=== PATIENT | male | born 1990 | race Caucasian/White ===

== ENCOUNTER 2018-04-22 11:06 | Observation (INO) | payer BC ==
[2018-04-22] MEDS ORDERED: HYDROmorphone 1 MG/ML Syringe IVPUSH ONE (11:16)
[2018-04-22] MEDS ORDERED: Ketorolac 30 MG/ML SDV IVPUSH ONE (11:21)
[2018-04-22] MEDS ORDERED: Diphtheria,Pertussis(Acell),Tetanus Vaccine 0.5 ML SDV IM ONE (11:21)
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
[2018-04-22] MEDS: Lactated Ringers 1,000 ML IV SCH ×2 (11:28→18:40)
--- NOTE | 2018-04-22 11:52 | CR ---
Chest 2V INDICATION: trauma COMPARISON: None FINDINGS: Two views. Heart size normal. Lungs are clear. No infiltrate or pleural effusion. No sig ns of pulmonary edema.
--- NOTE | 2018-04-22 11:53 | CR ---
Clavicle Rt INDICATION: trauma COMPARISON: None FINDINGS: 2 views. No fracture, dislocation, or other acute bony abnormality. No joint space narr owing.
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
--- NOTE | 2018-04-22 12:30 | CT ---
Thoracic Spine wo Cont INDICATION: trauma with pain TECHNIQUE: CT images of the thoracic spine. Sagittal and coronal images reformatted. Dosage reduction and iterative reconstruction techniques employed. COMPARISON: None FINDINGS: Mild acute compression fractures of the T3 and T4 vertebral bodies. Approximately 25% loss of vertebral body height at both levels. No retropulsion of fracture fragments. No other compression deformities seen. Mild paraspinal hematomas at these levels. IMPRESSION: Mild acute compression fractures T3 and T4 vertebral bodies.
--- NOTE | 2018-04-22 13:03 | CT ---
Head wo Cont INDICATION: trauma TECHNIQUE: CT images of the head obtained without IV contrast. Dosage reduction and iterative reconstruction techniques employed. COMPARISON: None FINDINGS: No acute intracranial abnormality. No hemorrhage, edema, or mass effect. Ventricles uzair l size. Right occipital condyle fracture as noted on CT cervical spine. IMPRESSION: No acute intracranial abnormality. Right occipital condyle fracture.
[2018-04-22] MEDS ORDERED: oxyCODONE 5 MG Tab PO ONE (15:25)
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
[2018-04-22] MEDS ORDERED: Ondansetron 4 MG Tab.DIS PO PRN (16:50)
[2018-04-22] MEDS ORDERED: Polyethylene Glycol 3350 Powder 17 GM Packet PO PRN (16:50)
[2018-04-22] MEDS ORDERED: HYDROmorphone 1 MG/ML Syringe IVPUSH PRN (16:50)
[2018-04-22] MEDS: Ibuprofen 800 MG Tab PO PRN (20:12)
[2018-04-22] MEDS: oxyCODONE 5 MG Tab PO PRN (23:28)
[2018-04-23] MEDS: Lactated Ringers 1,000 ML IV SCH (01:05)
[2018-04-23] MEDS: oxyCODONE 5 MG Tab PO PRN ×2 (04:15→08:25)
[2018-04-23] MEDS: Ibuprofen 800 MG Tab PO PRN (07:26)
[2018-04-23] MEDS ORDERED: Levothyroxine 50 MCG Tab PO SCH (07:30)
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
== END 2018-04-23 10:10 | disposition home or self-care (01) ==
LOC: JP.ED 11:06 → JP.MS 15:28
PROVIDERS: ADMIT Internal Medicine; ATTEND Internal Medicine
DX: S02.11GA Other fracture of occiput, right side, initial encounter for closed fracture (principal); S22.31XA Fracture of one rib, right side, initial encounter for closed fracture; S22.030A Wedge compression fracture of third thoracic vertebra, initial encounter for closed fracture; S22.040A Wedge compression fracture of fourth thoracic vertebra, initial encounter for closed fracture; F17.200 Nicotine dependence, unspecified, uncomplicated; E66.9 Obesity, unspecified; E03.9 Hypothyroidism, unspecified; Z79.899 Other long term (current) drug therapy; V86.55XA Driver of 3- or 4- wheeled all-terrain vehicle (ATV) injured in nontraffic accident, initial encounter
CPT/HCPCS: 70450; 71046; 72125; 72128; 73000; 81001; 90715; 96361; 96374; 96375; 96376; 99285; A9270; G0378; J1170; J1885; J7120